=== PATIENT | female | born 1965 | race Caucasian/White ===

== ENCOUNTER → 2016-10-07 | Outpatient (CLI) | payer OTHER ==
--- NOTE | ~2016-10-07 | PUL ---
PATIENT'S NAME: TIFFANIE GAINES [facility] AGE: 51 Y [address] ROOM: [place] [address] LOCATION: [facility] [place] DATE: 10/07/2016 Pulmonary DISCHARGE DATE: FAMILY PHYSICIAN: Sayda Ruano MD Resident ATTENDING PHYSICIAN: Sayda Ruano NAME OF PROCEDURE: Pulmonary Function Test DATE OF PROCEDURE: October 07, 2016 TECH: PEYMAN White REASON FOR EXAM: COPD RESULTS: 1. FVC was 4.24 liters which is 102% of predicted and normal, FEV1 was 3.24 liters which is 99% of predicted and normal, and FEV1/FVC was 76% and normal. The flow volume curve did not reveal any significant airflow limitation. After bronchodilator administration FVC decreased to 4.18 liters and FEV1 increased to 3.25 liters. FEV1/FVC was 78%. 2. DLCO was 26.4 with an adjusted DLCO of 25.2 which is 91% of predicted and normal. 3. Total lung capacity was 6.65 liters which is 111% of predicted and normal, and residual volume was 2.41 liters which is 111% of predicted and normal. PHYSICIAN INTERPRETATION: The patient has no airflow limitation and no significant bronchodilator response. Her diffusion capacity is normal. There is no evidence of restrictive lung disease. Essentially this is a normal pulmonary function test. MD PATRICIA CASTANEDA/eloina /[id number] dtt: 10/08/16 0952 , ABHIJEET GUPTA dtd: 10/08/16 0759
== END | disposition disaster alternative care site (69) ==
LOC: GRTH 09-14 09:00 → GBCOE 09-23 11:30 → GRTH 09:00 → GBCOE 12:13
DX: Z12.31 Encounter for screening mammogram for malignant neoplasm of breast (principal); J44.9 Chronic obstructive pulmonary disease, unspecified
CPT/HCPCS: G0202